=== PATIENT | female | born 1950 | race Caucasian/White ===

== ENCOUNTER 2017-04-28 13:50 | Emergency (ER) | payer MEDICARE, OTHER ==
[~2017-04-28] VITALS: Ht 160 cm; Wt 60.0 kg
[~2017-04-28 13:50] MED LIST: LEVO88TA2 PO; LISI-360 PO; SIMV20 PO; ZOFR4TAB3 PO
[2017-04-28 14:05] VITALS: BP 149/70; PULSE 70; RESP 16; TEMP 99.2; O2SAT 98
--- NOTE | 2017-04-28 15:44 | PD ---
HPI Chief Complaint: Cold / Flu Symptoms Time Seen by Provider: 15:36 Travel History International Travel<30 days: No Contact w/Intl Traveler<30days: No Traveled to known affect area: No History of Present Illness HPI 66-year-old female presents for evaluation. For 3 days she has had cough, congestion, chills and myalgias. The cough is productive of sputum. Unrelieved with [id number] antitussives. Denies recent travel, sore throat. Her has had a cough for the past few months. Denies any other sick contacts. No other complaints at this time. PFSH Past Medical History Arthritis: Yes Blood Disorders: No Heart Rhythm Problems: No Cancer: No Cardiac Catheterization: No Cardiovascular Problems: Yes (JUST RECENT CHEST DISCOMFORT) High Cholesterol: No Chemotherapy: No Congestive Heart Failure: No Diabetes: No Endocrine: Yes Gastrointestinal Disorders: Yes Genitourinary: No Immune Disorder: No Musculoskeletal: Yes Neurologic: No Psychiatric: No Reproductive: No Respiratory: Yes (MASS 2004 IN LEFT LUNG) Radiation Therapy: No Thyroid Disease: Yes Menopausal: Yes Tubal Ligation: Yes Past Surgical History AICD: No Arteriovenous Shunt: No Coronary Artery Bypass Graft: No Gynecologic Surgery: Yes (TUBALIGATION 1983) Insulin Pump: No Joint Replacement: No Pacemaker: No Tonsillectomy: Yes Other Surgery: Yes Social History Alcohol Use: Yes (WINE 2-3 TIMES A WEEK) Tobacco Use: Yes (OCC) Substance Use: No Allergies-Medications (Allergen,Severity, Reaction): Coded Allergies: diatrizoate meglumine (Verified Adverse Reaction, Severe, RASH, 04/28/17) gadobenic acid (Verified Adverse Reaction, Severe, RASH, 04/28/17) gadodiamide (Verified Adverse Reaction, Severe, RASH, 04/28/17) gadoteridol (Verified Adverse Reaction, Severe, RASH, 04/28/17) iodixanol (Verified Adverse Reaction, Severe, RASH, 04/28/17) iohexol (Verified Adverse Reaction, Severe, RASH, 04/28/17) Reported Meds & Prescriptions Reported Meds & Active Scripts Active Azithromycin 250 Mg Tab 250 Mg PO DIRECTED Take 2 tabs (500 mg) on day 1 then 1 tab daily x 4 days. Proair Hfa 8.5 GM Inh (Albuterol Sulfate) 90 Mcg/Act Aer 2 Puff INH Q4-6H PRN 108 mcg/actuation Prednisone 20 Mg Tab 20 Mg PO BID 5 Days Reported Calcium Magnesium Caplet (Calcium Carb,Gluc/Mag Ox,Gluc) 500 Mg Calcium-250 Mg Tablet Fish Oil + D3 (Fish Oil-Cholecalciferol) 1,200-1,000 Mg-Unit Cap 1 Cap PO DAILY Ibuprofen 200 Mg Cap 200 Mg PO DIRECTED Aspirin 325 Mg Tab 325 Mg PO DAILY Alprazolam 0.25 Mg Tab 0.25 Mg PO DIRECTED PRN Levothyroxine (Levothyroxine Sodium) 25 Mcg Tab 10 Mcg PO DAILY Lisinopril 10 Mg Tab 10 Mg PO DAILY Review of Systems Except as stated in HPI: all other systems reviewed are Neg Physical Exam Narrative GENERAL: Well-developed well-nourished female in no acute distress SKIN: Warm and dry. HEAD: Atraumatic. Normocephalic. EYES: Pupils equal and round. No scleral icterus. No injection or drainage. ENT: No nasal bleeding or discharge. Mucous membranes pink and moist. NECK: Trachea midline. No JVD. CARDIOVASCULAR: Regular rate and rhythm. No murmur appreciated. RESPIRATORY: No accessory muscle use. Diffuse wheezing bilaterally. No crackles. GASTROINTESTINAL: Abdomen soft, non-tender, nondistended. Hepatic and splenic margins not palpable. MUSCULOSKELETAL: No obvious deformities. No clubbing. No cyanosis. No edema. NEUROLOGICAL: Awake and alert. No obvious cranial nerve deficits. Motor grossly within normal limits. Normal speech. PSYCHIATRIC: Appropriate mood and affect; insight and judgment normal. Data Data Last Documented VS Vital Signs Date Time Temp Pulse Resp B/P (MAP) Pulse Ox O2 Delivery O2 Flow Rate FiO2 04/28/17 16:04 97 21 04/28/17 14:05 99.2 70 16 149/70 (96) Orders Orders Influenzae A/B Antigen (04/28/17 15:40) Chest, Single Ap (04/28/17 15:40) Albuterol-Ipratropium Neb (Duoneb Neb) (04/28/17 15:45) Ed Discharge Order (04/28/17 16:40) MDM Medical Decision Making Medical Screen Exam Complete: Yes Emergency Medical Condition: Yes Medical Record Reviewed: Yes Differential Diagnosis Bronchitis, reactive airway disease, pneumonia, influenza Narrative Course Chest x-ray, influenza antigen had been ordered. The patient will be given DuoNeb treatment. Patient reports significant improvement with DuoNeb treatment. She is positive for influenza A with outside of treatment with Tamiflu. She does have a questionable early pneumonia in the left lower lung base. She is being discharged with prednisone, albuterol, azithromycin. Discussed signs and symptoms that would warrant returning to the emergency room. Diagnosis Primary Impression: Influenza A Additional Impression: Pneumonia Additional Instructions: Medication as prescribed. Stay well-hydrated and well-nourished, get plenty of rest. Return for any emergent medical conditions. Med/Other Pt SpecificInfo: Prescription(s) given Scripts Azithromycin (Azithromycin) 250 Mg Tab 250 MG PO DIRECTED for Infection, #6 TAB 0 Refills Take 2 tabs (500 mg) on day 1 then 1 tab daily x 4 days. Prov: Sharri Rouse MD 04/28/17 Albuterol 8.5 GM Inh (Proair Hfa 8.5 GM Inh) 90 Mcg/Act Aer 2 PUFF INH Q4-6H Y for SHORTNESS OF BREATH, #1 INHALER 0 Refills 108 mcg/actuation Prov: Sharri Rouse MD 04/28/17 Prednisone (Prednisone) 20 Mg Tab 20 MG PO BID for 5 Days, #10 TAB 0 Refills Prov: Sharri Rouse MD 04/28/17 Disposition: 01 DISCHARGE HOME Condition: Stable Markie Jonas Apr 28, 2017 15:44
--- NOTE | 2017-04-28 15:59 | RADRPT ---
EXAM DATE/TIME: 04/28/2017 15:48 [facility] COMPARISON: No previous studies available for comparison. INDICATIONS : Cough. MEDICAL HISTORY : Bronchitis. SURGICAL HISTORY : None. ENCOUNTER: Initial ACUITY: 3 days PAIN SCORE: 7/10 LOCATION: Bilateral chest FINDINGS: A single view of the chest demonstrates minimal density left lower lobe Lungs clear. Heart normal in size. Osseous structures are intact. CONCLUSION: 1. Minimal density left lower lobe could be atelectasis/scarring or infiltrate. Bentley Hunt MD on April 28, 2017 at 15:56 Board Certified Radiologist. This report was verified electronically.
[2017-04-28] MEDS: RESP: ALBUTEROL 2.5 MG/IPRATROPIUM 0.5 MG NEB (SCH) INH ×2 (16:02→16:20)
[2017-04-28 16:04] VITALS: O2SAT 97
[2017-04-28] MEDS ORDERED: ASPI-183 PO (16:15)
[2017-04-28] MEDS ORDERED: IBUP200C PO (16:15)
[2017-04-28] MEDS ORDERED: CALC500T55 (16:15)
[2017-04-28] MEDS ORDERED: FISHCAP4 PO (16:15)
[2017-04-28] MEDS ORDERED: ALPR0.25 PO (16:15)
[2017-04-28] MEDS ORDERED: LEVO25TA4 PO (16:15)
[2017-04-28] MEDS ORDERED: LISI10TA3 PO (16:15)
[2017-04-28] MEDS ORDERED: PRED20 PO (16:39)
[2017-04-28] MEDS ORDERED: ALBUAER3 INH (16:39)
[2017-04-28] MEDS ORDERED: AZIT250T3 PO (16:39)
== END 2017-04-28 17:21 | disposition home or self-care (01) ==
LOC: PHEFT 13:50
DX: J10.00 Influenza due to other identified influenza virus with unspecified type of pneumonia (principal); E07.9 Disorder of thyroid, unspecified; Z72.0 Tobacco use
CPT/HCPCS: 71045; 87804; 94640; 94664; 99284